=== PATIENT | female | born 1965 ===

== ENCOUNTER → 2018-09-08 22:38 | Outpatient (REF) | payer OTHER, SELFPAY ==
[2018-09-09 02:12] LABS: Thyroid Stimulating Hormone 1.37 uIU/mL (0.47-4.68)
[2018-09-11 19:29] LABS: Progesterone 5.9 ng/mL
[2018-09-12 11:32] LABS: Triiodothyronine T3 Reverse 17 ng/dL (8-25)
[2018-09-12 14:22] LABS: EBV EBNA Antibody IgG < 18.00 U/mL (< 18.00); EBV Virus IgM Ab < 36.00 U/mL (< 36.00)
[2018-09-12 15:13] LABS: Dehydroepiandrosterone Sulfate 73 mcg/dL (8-188)
== END ==
LOC: LAB 22:38
PROVIDERS: Visit Provider Acupuncturist
DX: B27.00 Gammaherpesviral mononucleosis without complication (principal); R53.83 Other fatigue; E03.9 Hypothyroidism, unspecified; Z79.890 Hormone replacement therapy; N95.1 Menopausal and female climacteric states
CPT/HCPCS: 36415; 82627; 82671; 84144; 84443; 84481; 84482; 86663; 86664; 86665

== ENCOUNTER → 2018-09-14 21:12 | Outpatient (REF) | payer OTHER, SELFPAY ==
[2018-09-20 19:31] LABS: Estriol,Serum <0.10 ng/mL; Estrone 19 pg/mL
== END ==
LOC: LAB 21:12
PROVIDERS: Visit Provider Acupuncturist
DX: B27.00 Gammaherpesviral mononucleosis without complication (principal); R53.83 Other fatigue; E03.9 Hypothyroidism, unspecified; Z79.890 Hormone replacement therapy; N95.1 Menopausal and female climacteric states
CPT/HCPCS: 82671